=== PATIENT | female | born 1960 | race Caucasian/White ===

== ENCOUNTER → 2021-07-20 | Outpatient (CLI) | payer SELFPAY ==
[~2021-07-20] MED LIST: ASPIR 8181 MG PO; IMDUR ER TAB 3030 MG PO; LEVOTHYROXINE100 MCG PO; NITROGLYCERIN0.4 MG SL; PROTONIX40 MG PO; SYNTHROID100 MCG PO; TOPROL XL 25 MG25 MG PO; TOPROL XL25 MG PO
== END ==
LOC: KOH-I 14:10
DX: S82.832A Other fracture of upper and lower end of left fibula, initial encounter for closed fracture (principal); X58.XXXA Exposure to other specified factors, initial encounter
CPT/HCPCS: 73610

== ENCOUNTER → 2021-08-10 | Outpatient (CLI) | payer SELFPAY | LOC: KOH-I 13:47 | DX: S82.832D Other fracture of upper and lower end of left fibula, subsequent encounter for closed fracture with routine healing (principal); M19.072 Primary osteoarthritis, left ankle and foot | CPT/HCPCS: 73610 ==